=== PATIENT | female | born 1995 | race Caucasian/White ===

== ENCOUNTER 2018-01-30 10:34 | Emergency (ER) | payer OTHER ==
[2018-01-30 11:36] VITALS: BP 117/72
--- NOTE | 2018-01-30 12:43 | UC ---
Respiratory Complaint HPI - HPI Summary HPI Summary: 22-year-old woman with 10 days of upper respiratory tract infection symptoms. She's had cough and congestion and a sore throat. She had a period of laryngitis. She gets crusting in her eyes in the morning. No wheezing. No fevers measured. She comes today because the symptoms are persisting. No chest pain. [id number] medications have helped some. - History of Current Complaint Chief Complaint: UCGeneralIllness Stated Complaint: COUGH,EYES Time Seen by Provider: 01/30/18 11:46 Hx Last Menstrual Period: 01/16/18 Pain Intensity: 0 Pain Scale Used: 0-10 Numeric - Allergies/Home Medications Allergies/Adverse Reactions: Allergies Allergy/AdvReac Type Severity Reaction Status Date / Time No Known Allergies Allergy Verified 01/30/18 11:24 Home Medications: Home Medications Dextromethorphan HBr [Tussin Cough] 10 ml PO BID PRN 01/30/18 [History Confirmed 01/30/18] PMH/Surg Hx/FS Hx/Imm Hx Previously Healthy: Yes Other Endocrine History: NO DM Other Cardiovascular History: NO HTN - Surgical History Surgical History: None - Family History Family History: NO DM. NO CAD - Social History Alcohol Use: None Substance Use Type: Cocaine Smoking Status (MU): Never Smoked Tobacco Review of Systems Constitutional: Negative Skin: Negative Eyes: Drainage - B/L ENT: Nasal Discharge Respiratory: Cough, Other Cardiovascular: Negative Gastrointestinal: Negative Motor: Negative Neurovascular: Negative Musculoskeletal: Negative Neurological: Negative Psychological: Negative Is Patient Immunocompromised?: No All Other Systems Reviewed And Are Negative: Yes Physical Exam Triage Information Reviewed: Yes Appearance: Well-Appearing, No Pain Distress, Well-Nourished Vital Signs: Initial Vital Signs Temp 97.3 F 01/30/18 11:25 Pulse 69 01/30/18 11:25 Resp 20 01/30/18 11:25 BP 117/72 01/30/18 11:25 Pulse Ox 100 01/30/18 11:25 Vital Signs Reviewed: Yes Eyes: Positive: Conjunctiva Clear ENT: Positive: Pharyngeal erythema, Nasal congestion Neck: Positive: Supple Respiratory: Positive: Lungs clear, Normal breath sounds, No respiratory distress Cardiovascular: Positive: RRR Musculoskeletal: Positive: Strength Intact Neurological Exam: Normal Psychological Exam: Normal Skin Exam: Normal UC Diagnostic Evaluation - Laboratory O2 Sat by Pulse Oximetry: 100 Respiratory Course/Dx - Course Course Of Treatment: Discussed viral versus bacterial infection and the role of antibiotics in their treatment. THE PATIENT prefers to be on antibiotics at this time. - Differential Dx/Diagnosis Provider Diagnoses: BRONCHITIS Discharge - Sign-Out/Discharge Documenting (check all that apply): Patient Departure All imaging exams completed and their final reports reviewed: No Studies - Discharge Plan Condition: Stable Disposition: HOME Prescriptions: Azithromyxin ENRIQUE (NF) [Z-Enrique (Zithromax) 250 mg tabs #6] 2 tab PO .TODAY, THEN 1 DAILY #6 tab Tobramycin 0.3% OPHTH.VIGNESH* 1 drop BOTH EYES Q4H #1 btl Patient Education Materials: Acute Bronchitis (ED), Conjunctivitis (ED) Referrals: Xiomara Arredondo PA [Primary Care Provider] - Additional Instructions: FOLLOW UP WITH YOUR DOCTOR IF NOT COMPLETELY IMPROVED. GET RECHECKED FOR ANY WORSENING OF YOUR CONDITION OR QUESTIONS OR CONCERNS. - Billing Disposition and Condition Condition: STABLE Disposition: Home
== END 2018-01-30 12:05 | disposition home or self-care (01) ==
LOC: UCCORT 10:34
DX: J40 Bronchitis, not specified as acute or chronic (principal)
CPT/HCPCS: 99202; G0463